=== PATIENT | female | born 1955 | race African-American/Black ===

== ENCOUNTER 2016-04-09 07:29 | Emergency (ER) | payer OTHER ==
[~2016-04-09] VITALS: Ht 165.1 cm; Wt 121.7 kg
[~2016-04-09 07:29] MED LIST: Benadryl PO; CIPRO500 M1 PO; COLACE100 MG PO; COQ-1050 MG PO; DAILY MULTIPLE1 EACH PO; DELTASONE50 MG PO; DILAUDID2 MG PO; Flexeril PO; GERITOL COMP1 TABLET PO; HYDROCHLOROTH12.5 M3 PO; HYDROCHLOROTHIA25 MG PO; Hydrodiuril,Oretic,E PO; K-DUR20 MEQ PO; LEVAQUIN500 MG PO; LIDODERM 5% P1 PATCH TD; LIPITOR10 MG PO; MAALOX MAXIMUM355 ML PO; MOBIC7.5 MG PO; PREDNISONE; PREDNISONE20 MG PO; Proventil,Ventolin H IH; Robitussin, Organidi PO; SKELAXIN800 MG PO; Soma PO; TORADOL10 MG PO; TYLENOL EXTRA500 MG PO; TYLENOL REGULA325 MG PO; Tessalon Perle PO; Tylenol Regular Stre PO; VENTOLIN HFA18 GM IH; XANAX0.25 MG PO; ZITHROMAX Z-PA250 MG PO; ZITHROMAX250 MG PO; ZOCOR20 MG PO; ZOCOR80 MG PO; Zithromax PO; Zocor PO
[2016-04-09 08:27] LABS: HEMATOCRIT 38.1 % (36.0-46.0); MCHC 31.8 G/DL (30.0-36.0); MCV 81.8 FL (83-99); MEAN PLAT.VOLUME 10.7 uM^3 (9.5-12.4); PLATELET COUNT 251 K/uL (156-360); RBC DIS.WIDTH-CV 14.7 % (11.8-14.6); RBC DIS.WIDTH-SD 42.9 % (39-53); RED BLOOD COUNT 4.66 M/uL (3.80-5.20); WHITE BLOOD COUNT 7.9 K/uL (4.1-10.2)
[2016-04-09 08:36] LABS: CHLORIDE 102 mEq/L (99-109); POTASSIUM 3.4 mEq/L (3.7-5.4); SODIUM 141 mEq/L (136-147)
[2016-04-09 08:38] LABS: GLUCOSE 103 mg/dL (70-99)
[2016-04-09 08:39] LABS: ANION GAP 11 MEQ/L (2-14)
[2016-04-09 08:41] LABS: GFR ESTIMATE (CALCULATED) > 59 mL/min/
[2016-04-09 08:42] LABS: UREA NITROGEN (BUN) 7 mg/dL (9-23)
[2016-04-09 09:24] LABS: INFLUENZA A VIRAL ANTIGEN NEGATIVE; INFLUENZA B VIRAL ANTIGEN NEGATIVE
[2016-04-09 09:32] LABS: ADD MIUA? NO; BILIRUBIN NEGATIVE; BLOOD NEGATIVE; COLOR YELLOW ((YELLOW)); GLUCOSE (STRIP) NEGATIVE; KETONES NEGATIVE; LEUKOCYTES NEGATIVE; NITRITE NEGATIVE; PROTEIN (STRIP) NEGATIVE; SPECIFIC GRAVITY 1.014 (1.000-1.030); UCUL ADDED? NO; UROBILINOGEN 0.2 MG/DL (0.2-1.0)
[2016-04-09] MEDS ORDERED: TESSALON200 MG PO (09:41)
[2016-04-09] MEDS ORDERED: PROVENTIL HFA6.7 GM IH (09:41)
[2016-04-09 10:06] VITALS: BP 123/67
== END 2016-04-09 10:48 | disposition home or self-care (01) ==
LOC: EME 07:29
PROVIDERS: Physician Assistant
DX: J06.9 Acute upper respiratory infection, unspecified (principal); J98.01 Acute bronchospasm; E78.5 Hyperlipidemia, unspecified; I10 Essential (primary) hypertension; Z88.6 Allergy status to analgesic agent; Z91.041 Radiographic dye allergy status
CPT/HCPCS: 71020; 80048; 81003; 85027; 87502; 87651 90; 94640; 94640 76; 99281; 99284

== ENCOUNTER 2016-08-20 18:18 | Emergency (ER) | payer OTHER ==
[~2016-08-20] VITALS: Ht 165.1 cm; Wt 120.6 kg
[~2016-08-20 18:18] MED LIST changes: +PROVENTIL HFA6.7 GM IH; +TESSALON200 MG PO
[2016-08-20 19:25] LABS: EOSINOPHIL (%) 1.1 % (0-5); EOSINOPHIL COUNT 0.1 K/uL (0-0.3); HEMATOCRIT 38.9 % (36.0-46.0); IMMATURE GRANULOCYTE (%) 0.3 % (0.0-0.7); INSTRUMENT ABS NEUTROPHIL CT 8.8 K/uL; LYMPHOCYTE COUNT 2.2 K/uL (1.0-2.8); MCH 25.5 PG (29.0-34.0); MCHC 31.4 G/DL (30.0-36.0); MCV 81.2 FL (83-99); MEAN PLAT.VOLUME 11.1 uM^3 (9.5-12.4); MONOCYTE (%) 8.9 % (3-12); MONOCYTE COUNT 1.1 K/uL (0-0.8); NEUTROPHIL (%) 71.7 % (45-76); NEUTROPHIL COUNT 8.8 K/uL (1.8-6.4); PLATELET COUNT 261 K/uL (156-360); RBC DIS.WIDTH-CV 13.8 % (11.8-14.6); RED BLOOD COUNT 4.79 M/uL (3.80-5.20); WHITE BLOOD COUNT 12.3 K/uL (4.1-10.2)
[2016-08-20 19:31] LABS: ADD MIUA? NO; BILIRUBIN NEGATIVE; BLOOD NEGATIVE; COLOR YELLOW ((YELLOW)); GLUCOSE (STRIP) NEGATIVE; KETONES NEGATIVE; LEUKOCYTES NEGATIVE; NITRITE NEGATIVE; PROTEIN (STRIP) NEGATIVE; SPECIFIC GRAVITY 1.017 (1.000-1.030); UCUL ADDED? NO; UROBILINOGEN 0.2 MG/DL (0.2-1.0)
[2016-08-20 19:37] LABS: CHLORIDE 104 mEq/L (99-109); POTASSIUM 3.3 mEq/L (3.7-5.4); SODIUM 141 mEq/L (136-147)
[2016-08-20 19:39] LABS: GLUCOSE 99 mg/dL (70-99)
[2016-08-20 19:40] LABS: ANION GAP 10 MEQ/L (2-14)
[2016-08-20 19:42] LABS: GFR ESTIMATE (CALCULATED) > 59 mL/min/
[2016-08-20 19:43] LABS: UREA NITROGEN (BUN) 12 mg/dL (9-23)
[2016-08-20 20:08] LABS: INTERNAL CONTROL VALID? YES; MONOSPOT (MONONUCLEOSIS SEROL) NEGATIVE
[2016-08-20 20:20] LABS: INFLUENZA A VIRAL ANTIGEN NEGATIVE; INFLUENZA B VIRAL ANTIGEN NEGATIVE
[2016-08-20] MEDS ORDERED: LEVAQUIN750 MG PO (22:02)
[2016-08-20] MEDS ORDERED: PROVENTIL HFA6.7 GM IH (22:02)
[2016-08-20] MEDS ORDERED: PREDNISONE20 MG PO (22:08)
[2016-08-20 23:06] VITALS: BP 148/70
== END 2016-08-20 23:07 | disposition home or self-care (01) ==
LOC: EME 18:18
PROVIDERS: Emergency Medicine
DX: J18.9 Pneumonia, unspecified organism (principal); E78.5 Hyperlipidemia, unspecified; I10 Essential (primary) hypertension; R53.1 Weakness
CPT/HCPCS: 71020; 80048; 81003; 83605; 85025; 86308; 87040; 87086; 87502; 87651 90; 99281; 99285; J1100; J1885; J1956; J7030

== ENCOUNTER 2016-12-18 08:55 | Emergency (ER) | payer OTHER ==
[~2016-12-18] VITALS: Ht 165.1 cm; Wt 125.1 kg
[~2016-12-18 08:55] MED LIST changes: +LEVAQUIN750 MG PO
[2016-12-18 10:10] VITALS: BP 141/72
== END 2016-12-18 10:11 | disposition home or self-care (01) ==
LOC: EME 08:55
DX: S05.8X1A Other injuries of right eye and orbit, initial encounter (principal); X58.XXXA Exposure to other specified factors, initial encounter
CPT/HCPCS: 99281; 99283

== ENCOUNTER 2017-05-11 22:20 | Emergency (ER) | payer OTHER ==
[~2017-05-11] VITALS: Ht 165.1 cm; Wt 116.9 kg
[2017-05-12] MEDS ORDERED: TAMIFLU75 MG PO (00:37)
[2017-05-12 00:45] VITALS: BP 145/76
== END 2017-05-12 00:46 | disposition home or self-care (01) ==
LOC: EME 22:20
DX: J10.1 Influenza due to other identified influenza virus with other respiratory manifestations (principal)
CPT/HCPCS: 87502; 99281; 99283

== ENCOUNTER 2017-10-13 14:55 | Emergency (ER) | payer OTHER ==
[~2017-10-13] VITALS: Ht 165.1 cm; Wt 111.0 kg
[~2017-10-13 14:55] MED LIST changes: +TAMIFLU75 MG PO
[2017-10-13] MEDS ORDERED: REGLAN10 MG PO (17:17)
[2017-10-13] MEDS ORDERED: TORADOL10 MG PO (17:31)
[2017-10-13 17:39] VITALS: BP 139/58
== END 2017-10-13 17:40 | disposition home or self-care (01) ==
LOC: EME 14:55
DX: S09.90XA Unspecified injury of head, initial encounter (principal); W01.0XXA Fall on same level from slipping, tripping and stumbling without subsequent striking against object, initial encounter; I10 Essential (primary) hypertension; E78.5 Hyperlipidemia, unspecified; Z88.6 Allergy status to analgesic agent; Z88.5 Allergy status to narcotic agent; Z88.2 Allergy status to sulfonamides; Z88.1 Allergy status to other antibiotic agents; Z88.0 Allergy status to penicillin
CPT/HCPCS: 70450; 93005; 99281; 99284